=== PATIENT | female | born 1965 | race Caucasian/White ===

== ENCOUNTER 2023-12-29 11:34 | Emergency (ER) | payer OTHER, SELFPAY ==
--- NOTE | ~2023-12-29 | XR_ITS ---
XR cervical spine 4-5V 12/29/2023 12:27 Indication: Neck pain after fall from bed Procedure: 5 views cervical spine Comparison: No prior studies Findings: Straightening of cervical lordosis. There is disc narrowing at C5-6. No acute fracture or t raumatic malalignment. No prevertebral soft tissue swelling. No foreign bodies. Odontoid process is n ormal. There is mild multilevel uncinate hypertrophy. Impression: 1: No acute abnormality of the cervical spine. 2: Mild cervical spondylosis. Reviewed, dictated and finalized at location B. Impression: 1: No acute abnormality of the cervical spine. 2: Mild cervical spondylosis.
[2023-12-29 11:45] VITALS: BP 143/57; PULSE 65; RESP 16; TEMP 36.5; O2SAT 100
--- NOTE | 2023-12-29 12:00 | ED.HEATRA ---
HPI - Head Injury General Chief complaint: Head Injury Stated complaint: Head Injury Time Seen by Provider: 12/29/23 12:00 Source: patient Mode of arrival: ambulatory Limitations: no limitations History of Present Illness HPI Narrative: 58-year-old female presents with complaint of posterior neck pain, pain to right elbow and shoulder after falling out of bed today. Patient reports that she has bump to back for head. Patient states that she was leaning on the side of her bed looking at her cellphone. Was leaning on her elbow and elbow slipped off the bed causing her to fall. States that she fell on to elbow and shoulder and then fell backwards and hit head against nightstand. did not hit my head hard . Denies LOC. Was able to get up on her own. Denies headache, confusion, sleepiness, N/V, vision changes. Injury happened at 9:30 a.m. this morning. Came to urgent care to have next looked at. States neck pain only with moving. All systems reviewed and negative except as noted above. Related Data Home Medications Medication Instructions Recorded Confirmed clopidogrel 75 mg tablet 75 mg PO DAILY 12/29/23 12/29/23 empagliflozin 10 mg tablet 10 mg PO DAILY 12/29/23 12/29/23 (Jardiance) semaglutide 1 mg/dose (4 mg/3 mL) 1 mg subcut WEEKLY 12/29/23 12/29/23 subcutaneous pen injector (Ozempic) zonisamide 100 mg capsule 200 mg PO DAILY 12/29/23 12/29/23 Allergies Allergy/AdvReac Type Severity Reaction Status Date / Time codeine Allergy Severe VERY Verified 12/29/23 11:37 DROWSY--DIFF TO KEEP AWAKE Review of Systems Review of Systems: CONSTITUTIONAL: Denies fever, chills, or sweats. EYES: Denies visual changes, redness, or discharge. ENT: Denies rhinorrhea, congestion, sore throat, or otalgia. CARDIOVASCULAR: Denies chest pain, palpitations, or edema. RESPIRATORY: Denies cough or dyspnea. GASTROINTESTINAL: Denies abdominal pain, nausea, vomiting, or diarrhea. GENITOURINARY: Denies dysuria or hematuria. SKIN: Denies rash or itching. reports hematoma to occiput MUSCULOSKELETAL: Denies back pain, joint pain, or myalgia. Reports neck pain. NEUROLOGIC: Denies headache, numbness, or weakness. PSYCHIATRIC: Denies anxiety or depression. All other systems reviewed are negative, except as documented in HPI. PMFSH Comments At time of signature, agree with nursing past medical, surgical, social and family history. There is no relevant family history pertinent to the presenting complaint. Exam Narrative: GENERAL: This is a well-nourished, well-developed patient, in no apparent distress. HEAD: normocephalic, atraumatic. EYES: PERRL. Sclera clear/white. Vision is grossly intact. EARS: External ears normal NOSE: External nose normal THROAT: Mucous membranes moist, posterior pharynx clear. NECK: Neck supple, non-tender without lymphadenopathy, masses or thyromegaly. Midline tenderness, C4- C5 no deformity CARDIOVASCULAR: Regular rate and rhythm without murmurs, gallops, or rubs. RESPIRATORY: Clear to auscultation. Breath sounds equal bilaterally. No wheezes, rales, or rhonchi. SKIN: warm, Dry, intact with no suspicious lesions or rash, good texture and turgor. NEURO: awake, alert, and oriented to person, place and time. There were no obvious focal neurologic abnormalities. EXTREMITIES: No joint tenderness, effusion, or edema noted. small abrasion noted to right elbow. Normal range of motion without swelling. No tenderness on palpation. Normal range of motion to right shoulder without tenderness on palpation. BACK: Nontender without deformity. Course Course Level of Care: Express Care Visit Vital Signs Vital signs: Vital Signs Temperature 36.5 C 12/29/23 11:45 Pulse Rate 65 12/29/23 11:45 Respiratory Rate 16 12/29/23 11:45 Blood Pressure 143/57 H 12/29/23 11:45 Pulse Oximetry 100 12/29/23 11:45 Oxygen Delivery Room Air 12/29/23 11:45 Temperature 36.5 C
== END 2023-12-29 12:52 | disposition home or self-care (01) ==
PROVIDERS: Emergency Provider Nurse Practitioner Family; PCP Family Medicine
DX: S00.03XA Contusion of scalp, initial encounter (principal); S13.9XXA Sprain of joints and ligaments of unspecified parts of neck, initial encounter; S50.311A Abrasion of right elbow, initial encounter; W06.XXXA Fall from bed, initial encounter; E11.9 Type 2 diabetes mellitus without complications; Z86.73 Personal history of transient ischemic attack (TIA), and cerebral infarction without residual deficits
CPT/HCPCS: 72050; 99213; G0463

== ENCOUNTER 2024-01-17 16:09 | Emergency (ER) | payer OTHER, SELFPAY ==
--- NOTE | ~2024-01-17 | CT_ITS ---
EXAMINATION: CT brain wo con DATE: 01/17/2024 19:30 INDICATION: Head injury. TECHNIQUE: Computed tomography (CT) of the head was performed without intravenous contrast. The mA wa s adjusted according to patient size. Iterative reconstruction technique was employed. The dose-lengt h product was 605.33 mGy-cm. COMPARISON: None FINDINGS: There is an old infarct in the left cerebellum. There is an old infarct in the right thalam us. There is no intracranial hemorrhage, acute infarction, or abnormal intracranial mass lesion. The ventricles are normal in size. The orbits are normal. The paranasal sinuses are clear. The mastoid ai r cells are normal. IMPRESSION: 1. Old infarcts in the left cerebellum and right thalamus. Reviewed, dictated and finalized at location E.
--- NOTE | ~2024-01-17 | XR_ITS ---
EXAMINATION: XR hand RT min 3V DATE: 01/17/2024 19:17 INDICATION: Right hand pain. Fall. TECHNIQUE: 3 views of right hand were obtained. COMPARISON: None. FINDINGS: Bone alignment is normal. No fracture. There is mild osteoarthritis of triscaphe joint. IMPRESSION: 1. No fracture. Reviewed, dictated and finalized at location E. IMPRESSION: 1. No fracture.
--- NOTE | ~2024-01-17 | XR_ITS ---
EXAMINATION: XR knee LT min 4V DATE: 01/17/2024 19:17 INDICATION: Left knee pain. Fall. TECHNIQUE: 4 views of left knee were obtained. COMPARISON: None. FINDINGS: Bone alignment is normal. No fracture. There is mild tricompartmental osteoarthritis. There is a moderate-sized knee joint effusion. IMPRESSION: 1. Mild left knee osteoarthritis. 2. Moderate-sized knee joint effusion. Reviewed, dictated and finalized at location E.
--- NOTE | ~2024-01-17 | CT_ITS ---
EXAMINATION: CT facial & cervical spine wo DATE: 01/17/2024 19:30 INDICATION: Head injury. TECHNIQUE: Computed tomography (CT) of the maxillofacial region and cervical spine was performed with out intravenous contrast. Automated exposure control and iterative reconstruction technique were empl oyed. The dose-length product was 605.33 mGy-cm. COMPARISON: None FINDINGS: MAXILLOFACIAL CT: The orbits are normal. There is no fracture. CERVICAL SPINE CT: Bone alignment is normal. There is a compression fracture of T2 with less than 1/5 loss of height. Th ere is severely decreased disc height at C5-C6. The following disc levels are specifically discussed: C2-C3: There is mild bilateral uncovertebral joint osteoarthritis. There is severe bilateral facet krupa int osteoarthritis. There is mild left neural foraminal stenosis. There is no central canal stenosis. C3-C4: There is no uncovertebral joint osteoarthritis. There is moderate bilateral facet joint osteoa rthritis. There is no neural foraminal stenosis. There is no central canal stenosis. C4-C5: There is no uncovertebral joint osteoarthritis. There is mild bilateral facet joint osteoarthr itis. There is no neural foraminal stenosis. There is no central canal stenosis. C5-C6: There is severe bilateral uncovertebral joint osteoarthritis. There is moderate bilateral face t joint osteoarthritis. There is mild bilateral neural foraminal stenosis. There is mild central chao l stenosis. C6-C7: There is no uncovertebral joint osteoarthritis. There is mild bilateral facet joint osteoarthr itis. There is no neural foraminal stenosis. There is no central canal stenosis. C7-T1: There is no uncovertebral joint osteoarthritis. There is severe bilateral facet joint osteoart hritis. There is mild bilateral neural foraminal stenosis. There is no central canal stenosis. IMPRESSION: 1. Acute versus subacute T2 compression fracture. 2. Severe spondylosis at C5-C6. Reviewed, dictated and finalized at location E.
[2024-01-17 16:13] VITALS: BP 122/44; PULSE 66; RESP 16; TEMP 36.8; O2SAT 100
--- NOTE | 2024-01-17 18:42 | ED.FALL ---
HPI - Fall General Chief Complaint: Fall <FRANCISCA Alba Last Filed: 01/21/24 17:05> Stated Complaint: FALL, LEFT KNEE PAIN <FRANCISCA Alba Last Filed: 01/21/24 17:05> Time Seen by Provider: 01/17/24 18:42 <FRANCISCA Alba Last Filed: 01/21/24 17:05> Focused HPI: Patient is a 58-year-old female who presents the ED with report of a fall. Patient reports she tripped in the [facility] parking lot and fell forward, landing with most of her weight on her left knee, also caught herself with her hands. She did also hit her head and sustained a laceration to her chin. Denied LOC. Complains of the most pain to her left knee and right hand. Patient is on Plavix due to history of CVA. Reports mild dizziness. Denies syncope, nausea, vomiting, vision changes, chest pain, shortness breath, numbness. GENERAL: Well-appearing, well-nourished, and in no acute distress. HEAD: Normocephalic. 0.25cm lac to chin, minimal oozing. EYES: PERRL/EOMI, conjunctiva clear. NECK: No significant midline spinal tenderness. CHEST: Clear to auscultation. ?No respiratory distress. HEART: Regular rate and rhythm.? MSK: Diffuse TTP to superior and medial knee joint spaces, moderate swelling noted to R anterior knee. Mild TTP to R thenar eminence, no significant bruising. NEURO: ?Alert and oriented x3. Patient screened in triage and initial orders placed.? ?Additional care and disposition to be based upon?diagnostic testing and treatment. <FRANCISCA Alba Last Filed: 01/21/24 17:05> Source: patient <FRANCISCA Alba Last Filed: 01/21/24 17:05> Mode of arrival: wheelchair <FRANCISCA Alba Last Filed: 01/21/24 17:05> Limitations: no limitations <FRANCISCA Alba Last Filed: 01/21/24 17:05> Related Data Home Medications: Home Medications Medication Instructions Recorded Confirmed clopidogrel 75 mg tablet 75 mg PO DAILY 12/29/23 01/21/24 empagliflozin 10 mg tablet 10 mg PO DAILY 12/29/23 01/21/24 (Jardiance) semaglutide 1 mg/dose (4 mg/3 mL) 1 mg subcut WEEKLY 12/29/23 01/21/24 subcutaneous pen injector (Ozempic) zonisamide 100 mg capsule 200 mg PO DAILY 12/29/23 01/21/24 <Dea Patel PA-C - Last Filed: 01/21/24 17:05> Allergies/Adverse Reactions: Allergies Allergy/AdvReac Type Severity Reaction Status Date / Time codeine Allergy Severe VERY Verified 01/21/24 11:36 DROWSY--DIFF TO KEEP AWAKE <Dea Patel PA-C - Last Filed: 01/21/24 17:05> Review of Systems Review of Systems: Agree with HPI otherwise neg <Minoo Gomes MD - Last Filed: 01/22/24 05:10> PMFSH Social History Social History: Social History Smoking status: Smoker, status unknown <Dea Patel PA-C - Last Filed: 01/21/24 17:05> Exam Narrative: GENERAL: Well-appearing, well-nourished, and in no acute distress. HEAD: Normocephalic. 0.25cm lac to chin, minimal oozing. EYES: PERRL/EOMI, conjunctiva clear. NECK: No significant midline spinal tenderness. CHEST: Clear to auscultation. ?No respiratory distress. HEART: Regular rate and rhythm.? MSK: Diffuse TTP to superior and medial knee joint spaces, moderate swelling noted to R anterior knee. Mild TTP to R thenar eminence, no significant bruising. NEURO: ?Alert and oriented x3. <Minoo Gomes MD - Last Filed: 01/22/24 05:10> Course Vital Signs Vital signs: Vital Signs Temperature 98.2 F 01/17/24 16:13 Pulse Rate 66 01/17/24 16:13 Respiratory Rate 16 01/17/24 16:13 Blood Pressure 122/44 L 01/17/24 16:13 Pulse Oximetry 100 01/17/24 16:13 Temperature 98.2 F 01/17/24 16:13 Pulse Rate 72 01/17/24 20:04 Respiratory Rate 16 01/17/24 20:04 Blood Pressure 130/54 L 01/17/24 20:04 Pulse Oximetry 100 01/17/24 20:04 <Dea Patel PA-C
[2024-01-17] MEDS: TETANUS,DIPHTHERIA,AC PERTUSSIS ADULT (0.5 ML) BOOSTRIX IM (18:57)
[2024-01-17] MEDS: traMADol HCL (*CRX) 50 MG TABLET PO (18:57)
[2024-01-17] MEDS: ACETAMINOPHEN 500 MG TABLET 1000 MG PO (18:57)
[2024-01-17 20:04] VITALS: BP 130/54; PULSE 72; RESP 16; O2SAT 100
== END 2024-01-17 20:12 | disposition home or self-care (01) ==
LOC: ANHED 20:06
PROVIDERS: Emergency Provider Emergency Medicine; PCP Family Medicine
DX: S83.92XA Sprain of unspecified site of left knee, initial encounter (principal); S01.81XA Laceration without foreign body of other part of head, initial encounter; Z23 Encounter for immunization; M17.12 Unilateral primary osteoarthritis, left knee; W01.0XXA Fall on same level from slipping, tripping and stumbling without subsequent striking against object, initial encounter
CPT/HCPCS: 12011; 70450; 70486; 72125; 73130; 73564; 90471; 90715; 99284; A9270

== ENCOUNTER 2024-01-29 11:20 | Outpatient (CLI) | payer OTHER, SELFPAY ==
--- NOTE | ~2024-01-29 | MR_ITS ---
EXAMINATION: MR knee LT wo con DATE: 01/29/2024 12:02 INDICATION: Anterior lateral left knee pain. TECHNIQUE: Magnetic resonance imaging (MRI) of the left knee was performed without intravenous contra st. Sequences included axial PD-weighted FS FSE, coronal PD-weighted FSE and PD-weighted FS FSE, sagi ttal PD-weighted FSE, and sagittal T2-weighted FS FSE. COMPARISON: Left knee radiographs 01/17/2024 FINDINGS: Medial compartment: Medial meniscus is normal. There are shallow partial-thickness cartilage loss of femoral condyle and tibial condyle. Lateral compartment: Lateral meniscus is discoid. Lateral compartment cartilage is normal. Patellofemoral compartment: Patellar cartilage is normal. Trochlear cartilage is normal. Ligaments and tendons: The anterior cruciate ligament is normal. There is a partial tear of posterior cruciate ligament shirley acterized by thickening and increased signal intensity. Medial collateral ligament is normal. There a re changes of prior sprain of fibular collateral ligament characterized by increased signal intensity proximally. Fluid: There is a small knee joint effusion. There is mild superficial infrapatellar bursitis. Osseous/other: There is a nondisplaced stellate fracture of patella with low signal fracture lines and edema-like ma rrow signal intensity. IMPRESSION: 1. Nondisplaced stellate fracture of patella. 2. Mild medial compartment chondrosis. 3. Partial tear of posterior cruciate ligament. 4. Small knee joint effusion. Reviewed, dictated and finalized at location E.
== END 2024-01-29 11:21 ==
PROVIDERS: PCP Family Medicine; Visit Provider Orthopaedic Surgery
DX: M25.462 Effusion, left knee (principal); S83.522D Sprain of posterior cruciate ligament of left knee, subsequent encounter; S82.092D Other fracture of left patella, subsequent encounter for closed fracture with routine healing; X58.XXXD Exposure to other specified factors, subsequent encounter
CPT/HCPCS: 73721